=== PATIENT | male | born 1975 | race Caucasian/White ===

== ENCOUNTER 2024-07-16 17:08 | Emergency (ER) | payer BC ==
[~2024-07-16] VITALS: Ht 180.3 cm; Wt 80.7 kg
[2024-07-16 18:53] VITALS: BP 102/72; TEMP 98.5; O2SAT 99
== END 2024-07-16 18:55 | disposition home or self-care (01) ==
LOC: ER 17:25
DX: M79.604 Pain in right leg (principal); M79.89 Other specified soft tissue disorders; I10 Essential (primary) hypertension
CPT/HCPCS: 93970-TC